=== PATIENT | female | born 1990 | race Caucasian/White ===

== ENCOUNTER 2016-09-12 06:46 | Inpatient (IN) | payer OTHER ==
[~2016-09-12] VITALS: Ht 165.1 cm; Wt 81.2 kg
[2016-09-12 07:45] LABS: HCT 38.6 % (37.0-47.0); MCH 31.2 pg (25.0-31.0); MCHC 33.7 g/dL (32.0-36.0); MCV 92.6 fL (78.0-100.0); MPV 10.3 fL (6.0-9.5); RBC 4.17 M/uL (4.20-5.40); RDW 13.9 % (11.5-14.0); WBC 10.7 K/uL (4.0-10.5)
[2016-09-12 10:37] LABS: BILIRUBIN NEGATIVE (NEGATIVE); BLOOD NEGATIVE Ery/uL (NEGATIVE); CLARITY CLEAR (CLEAR); COLOR YELLOW (YELLOW); GLUCOSE (U) NORMAL (NORMAL); KETONE (U) NEGATIVE (NEGATIVE); LEUKOCYTES NEGATIVE Leu/uL (NEGATIVE); NITRITE NEGATIVE (NEGATIVE); PROTEIN NEGATIVE (NEGATIVE); SPECIFIC GRAVITY <=1.005 (1.001-1.030); UROBILINOGEN 0.2 mg/dL (0.2-1.0); pH 7.5 (5.0-9.0)
[2016-09-13 07:08] LABS: HCT 29.7 % (37.0-47.0); HGB 9.8 g/dl (12.5-16.0); MCH 31.2 pg (25.0-31.0); MCV 94.6 fL (78.0-100.0); MPV 10.1 fL (6.0-9.5); RBC 3.14 M/uL (4.20-5.40); RDW 13.7 % (11.5-14.0); WBC 15.7 K/uL (4.0-10.5)
== END 2016-09-14 10:40 | disposition home or self-care (01) | DRG 765 ==
LOC: FOB 06:46 → FMS 08:00 → FOB 09-13 09:29
PROVIDERS: Obstetrics & Gynecology; ADMIT Obstetrics & Gynecology
PROC: 10D00Z1 Extraction of Products of Conception, Low, Open Approach (ICD-10-PCS; principal; 2016-09-12 08:00)
DX: O32.1XX0 Maternal care for breech presentation, not applicable or unspecified (principal); D62 Acute posthemorrhagic anemia; Z3A.39 39 weeks gestation of pregnancy; Z37.0 Single live birth; O99.52 Diseases of the respiratory system complicating childbirth; J45.909 Unspecified asthma, uncomplicated; O99.03 Anemia complicating the puerperium
CPT/HCPCS: 36415; 81003; J0690; J1100; J1885; J2274; J2300; J2310; J2405; J3010

== ENCOUNTER 2020-04-22 09:57 | Emergency (ER) | payer OTHER ==
[2020-04-22 11:25] LABS: BILIRUBIN NEGATIVE (NEGATIVE); BLOOD 3+ Ery/uL (NEGATIVE); CLARITY CLEAR (CLEAR); COLOR YELLOW (YELLOW); GLUCOSE (U) NORMAL (NORMAL); LEUKOCYTES NEGATIVE Leu/uL (NEGATIVE); NITRITE NEGATIVE (NEGATIVE); PROTEIN NEGATIVE (NEGATIVE); UROBILINOGEN 0.2 mg/dL (0.2-1.0)
[2020-04-22 11:33] LABS: BACTERIA TRACE; URINARY WBC RARE
== END 2020-04-22 12:01 | disposition home or self-care (01) ==
LOC: FER 09:57
PROVIDERS: Emergency Medicine
DX: N93.9 Abnormal uterine and vaginal bleeding, unspecified (principal); F32.9 Major depressive disorder, single episode, unspecified; Z86.16 Personal history of COVID-19; Z79.899 Other long term (current) drug therapy; Z98.890 Other specified postprocedural states
CPT/HCPCS: 81001; 99284